=== PATIENT | female | born 1985 | race African-American/Black ===

== ENCOUNTER 2021-08-07 11:14 | Emergency (ER) | payer OTHER, MEDICAID, SELFPAY ==
[2021-08-07] VITALS (9 sets, daily range): BP systolic 121–132; BP diastolic 72–89; PULSE 87–110; RESP 18–22; TEMP 37.1; O2SAT 94–100; BMI 34.3
[2021-08-07 11:44] LABS: COVID19 -Nasal RAPID POSITIVE (Negative)
--- NOTE | 2021-08-07 12:48 | ED.URI ---
HPI - URI/Sore Throat <Cecilio Suarez PA-C - Last Filed: 08/07/21 14:02> General Chief Complaint: Upper Respiratory Symptoms Stated Complaint: Body aches/no taste/cough x1 week Time Seen by Provider: 08/07/21 12:03 Source: patient Mode of arrival: Ambulatory Limitations: no limitations History of Present Illness HPI Narrative: 36-year-old female with no significant past medical history presents to the ED with 1 week of muscle aches, cough. Patient is unvaccinated for COVID-19. Patient endorses cough, all over myalgias, loss of taste, blunted sense of smell for 1 week. Denies fever, chills, chest pain, shortness of breath, nausea, vomiting, diarrhea, dysuria, lightheadedness, dizziness, syncope. Denies leg swelling, prior PE or DVT, exogenous hormone use, hemoptysis, immobilization. Endorses smoking. Patient requesting a note today for work stating that she is COVID positive. Related Data Allergies Allergy/AdvReac Type Severity Reaction Status Date / Time No Known Drug Allergies Allergy Verified 08/07/21 11:25 Review of Systems <Cecilio Suarez PA-C - Last Filed: 08/07/21 14:02> Constitutional Constitutional: Reports body ache(s), Denies chills, Reports fatigue, Denies fever(s), Denies frequent falls, Denies lethargy and Denies weakness Eyes Eyes: Denies change in vision, Denies eye discharge, Denies irritation and Denies loss of vision ENT Ears, Nose, Mouth, and Throat: Denies change in voice, Denies dizziness, Denies neck pain, Denies sore throat and Denies throat swelling Comments: Loss of taste. Blunted sense of smell Cardiovascular Cardiovascular: Denies chest pain, Denies irregular heart rhythm, Denies lightheadedness, Denies palpitations, Denies dyspnea, Denies dyspnea on exertion and Denies orthopnea Respiratory Respiratory: Reports cough, Denies dyspnea, Denies dyspnea on exertion and Denies wheezing Gastrointestinal Gastrointestinal: Denies abdominal pain, Denies change in bowel habits, Denies diarrhea, Denies nausea and Denies vomiting Musculoskeletal Musculoskeletal: Denies neck pain and Denies numbness Integumentary/Breasts Skin/Breast: Denies pruritus, Denies erythema, Denies rash and Denies wounds Neurologic Neurologic: Denies behavioral changes, Denies confusion, Denies dizziness, Denies frequent falls, Denies loss of vision, Denies numbness and Denies weakness Psychiatric Psychiatric: Denies anxiety, Denies behavioral changes, Denies confusion, Denies depression, Denies homicidal ideation and Denies suicidal ideation Endocrine Endocrine: Reports fatigue, Denies flushing and Denies palpitations Hematologic/Lymphatic Hematologic/Lymphatic: Denies easy bruising Allergic/Immunologic Allergic/Immunologic: Denies urticaria, Denies throat swelling and Denies wheezing Patient History <Cecilio Suarez PA-C - Last Filed: 08/07/21 14:02> Social History Smoking Status: Current every day smoker Smoking Status: Current every day smoker alcohol intake frequency: holidays/special occasions only Substance Use Type: does not use Exam <Cecilio Suarez PA-C - Last Filed: 08/07/21 14:02> Initial Vital Signs Initial Vital Signs: Vital Signs Temperature 98.8 F 08/07/21 11:20 Pulse Rate 101 H 08/07/21 11:20 Respiratory Rate 22 08/07/21 11:20 Blood Pressure 132/72 08/07/21 11:20 Pulse Oximetry 94 08/07/21 11:20 Const General: cooperative HENMT Head: normocephalic and atraumatic Ears: external ears normal and TM's normal bilaterally Nose: external nose normal and No nasal discharge Face and sinus: sinuses nontender, face symmetric, no sinus tenderness and No dry mucous membranes Mouth: oral mucosae normal and moist mucous membranes Teeth and gingiva: dentition normal Throat: tonsils normal and uvula midline Eyes General: appearance normal, both eyes and all related structures Eyelids: eyelids normal Conjunctivae: conjunctivae normal Sclera: sclerae normal Pupils: PERRL EOM: EOM intact bilaterally Neck Neck: normal visual inspection, trachea midline, No lymphadenopathy, No midline deformity and No JVD Lymphatic: No lymphedema Chest Chest: normal inspection of the chest Resp Effort & Inspection: normal respiratory effort, able to speak in complete sentences, no respiratory distress and no use of accessory muscles Auscultation: clear to auscultation bilaterally, no rales, no rhonchi and no wheezes Cardio Rate: tachycardic Rhythm: regular rhythm Heart Sounds: no click, no gallops, no murmurs and no rubs Pulses: normal peripheral pulses Other: Tachy between 90 to low 100s. GI Inspection: non-distended Palpation: soft, no hepatosplenomegaly, No guarding, No pulsatile mass and No tender Auscultation: normal bowel sounds Back/Spine/Pelvis Back: No CVA tenderness Cervical Spine: cervical ROM normal and No pain with cervical ROM Thoracic/Lumbar Spine: thoracic and lumbar spine normal to inspection Skin General: no rashes or lesions noted, No jaundice and No petechiae Neuro General: patient alert, patient oriented x3, gait normal and no focal motor deficits Speech: speech normal Extrem General: full ROM, no clubbing, cyanosis or edema, no pedal edema and no calf tenderness Psych Appearance: well kempt Mental Status: mental status grossly normal Attitude: cooperative Thought Content: normal and suicidality Judgment: judgment good <Jeana Mendoza MD - Last Filed: 08/07/21 14:42> Initial Vital Signs Initial Vital Signs: Vital Signs Temperature 98.8 F 08/07/21 11:20 Pulse Rate 101 H 08/07/21 11:20 Respiratory Rate 22 08/07/21 11:20 Blood Pressure 132/72 08/07/21 11:20 Pulse Oximetry 94 08/07/21 11:20 Course <Cecilio Suarez PA-C - Last Filed: 08/07/21 14:02> Course Course Narrative: Patient tolerated p.o. hydration well, heart rate came down to the 80s. Patient is stable. Will discharge home with ED return precautions. Orders Ordered: ED Orders 08/07/21 11:20 COVID19 -Nasal swab/Pre-Proc Stat Vital Signs Vital signs: Vital Signs - 8 hr 08/07/21 11:20 08/07/21 11:22 08/07/21 11:30 Temperature 98.8 F Pulse Rate 110 H 108 H 97 H Respiratory Rate 22 Blood Pressure 132/72 123/72 Pulse Oximetry 96 96 97 08/07/21 12:00 08/07/21 12:30 08/07/21 12:39 Temperature 98.7 F Pulse Rate 94 H 98 H 104 H Respiratory Rate Blood Pressure 121/89 Pulse Oximetry 100 100 100 08/07/21 13:00 08/07/21 13:30 08/07/21 14:01 Temperature Pulse Rate 94 H 87 88 Respiratory Rate 18 Blood Pressure 123/89 Pulse Oximetry 100 100 100 <Jeana Mendoza MD - Last Filed: 08/07/21 14:42> Orders Ordered: ED Orders 08/07/21 11:20 COVID19 -Nasal swab/Pre-Proc Stat Vital Signs Vital signs: Vital Signs - 8 hr 08/07/21 11:20 08/07/21 11:22 08/07/21 11:30 Temperature 98.8 F Pulse Rate 110 H 108 H 97 H Respiratory Rate 22 Blood Pressure 132/72 123/72 Pulse Oximetry 96 96 97 08/07/21 12:00 08/07/21 12:30 08/07/21 12:39 Temperature 98.7 F Pulse Rate 94 H 98 H 104 H Respiratory Rate Blood Pressure 121/89 Pulse Oximetry 100 100 100 08/07/21 13:00 08/07/21 13:30 08/07/21 14:01 Temperature Pulse Rate 94 H 87 88 Respiratory Rate 18 Blood Pressure 123/89 Pulse Oximetry 100 100 100 MDM - URI/Sore Throat <Cecilio Suarez PA-C - Last Filed: 08/07/21 14:02> Medical Records Attestation: I reviewed the patient's medical records. Lab Data Attestation: I reviewed the patient's lab results. Lab results narrative: COVID-19 positive Labs: Lab Results 08/07/21 Range/Units 11:20 SARS-CoV-2 (PCR) Positive H (Negative) MDM Narrative Medical decision making narrative: 36-year-old female with no significant past medical history presents to the ED with 1 week of muscle aches, cough. Concern for COVID-19 infection versus dehydration. Patient endorses not drinking a lot of water, will offer p.o. hydration, recheck heart rate. Likely discharge home with ED return precautions. <Jeana Mendoza MD - Last Filed: 08/07/21 14:42> Lab Data Labs: Lab Results 08/07/21 Range/Units 11:20 SARS-CoV-2 (PCR) Positive H (Negative) Discharge Plan Departure Patient Disposition: Home Clinical Impression: COVID-19 Instructions: DI for COVID-19 (Suspected or Confirmed ), Coronavirus Disease 2019, Can COVID-19 be prevented? Activity Restrictions/Additional Instructions: You have been diagnosed with the COVID-19 infection today in the ED. return to the ED if you experience shortness of breath, chest pain. Stay hydrated by drinking lots of water. Continue masking, handwashing, isolating for 7-10 days. You can call the the vaccinations center to see when you are eligible for the COVID-19 vaccine. <Jeana Mendoza MD - Last Filed: 08/07/21 14:42> Cosign ED Attending Cosignature Attestation: I was immediately available in the department for consultation throughout this patient's visit. I agree with documentation as above. Jeana Mendoza MD
== END 2021-08-07 14:01 | disposition home or self-care (01) ==
PROVIDERS: Emergency Medicine; Emergency Provider Student in an Organized Health Care Education/Training Program
DX: U07.1 COVID-19 (principal)
CPT/HCPCS: 87635; 99281; 99282; C9803

== ENCOUNTER 2021-11-30 01:25 | Emergency (ER) | payer OTHER, MEDICAID, SELFPAY ==
[2021-11-30 01:30] VITALS: BP 137/95; PULSE 110; RESP 20; TEMP 36.6; O2SAT 98; BMI 40.3
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
[2021-11-30] MEDS: AMOXICILLIN/CLAV 875/125 MG 1 TAB PO (01:56)
[2021-11-30] MEDS: TET,DIPH,PERTUSS(ACELL),VAC/PF 0.5 ML SYRINGE IM (01:56)
[2021-11-30] MEDS: BUPIVACAINE 0.25% (PF) VIAL 5 ML SUBCUT (03:28)
[2021-11-30 03:39] VITALS: BP 140/92; PULSE 102; RESP 18; O2SAT 98
[2021-11-30] MEDS: HYDROCODONE/ACET 5/325 PREPACK 1 BOTTLE MISC (05:04)
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
== END 2021-11-30 05:20 | disposition home or self-care (01) ==
PROVIDERS: Emergency Provider Emergency Medicine
DX: M26.34 Vertical displacement of fully erupted tooth or teeth (principal); Y04.2XXA Assault by strike against or bumped into by another person, initial encounter; Z23 Encounter for immunization
CPT/HCPCS: 64450; 70486; 90471; 99284; 90715

== ENCOUNTER 2024-12-05 00:48 | Emergency (ER) | payer OTHER, SELFPAY ==
[2024-12-05 00:56] VITALS: BP 163/92; PULSE 92; RESP 16; TEMP 36.5; O2SAT 100; BMI 36.3
[2024-12-05 01:37] LABS: Urine Volume 10mL (spun)
[2024-12-05 01:38] LABS: RBC Urine 5-10/HPF (0-5/HPF); WBC Urine 30-100/HPF (0-5/HPF)
[2024-12-05 01:39] LABS: Bacteria Urine Moderate (10-30); Culture Indicated Urine Specimen Cultured; Mucus Urine 1+ (Negative); Squamous Epithelial Cell Urine 10-30 /HPF (0-5/HPF)
[2024-12-05] MEDS: PHENAZOPYRIDINE 100 MG TABLET 200 MG PO (01:58)
[2024-12-05] MEDS: cephALEXin 250 MG CAPSULE 500 MG PO (01:58)
--- NOTE | 2024-12-05 02:26 | ED_ITS ---
HPI - Female Genitourinary General Chief complaint: Urogenital-Female Stated complaint: yeast infection Time Seen by Provider: 12/05/24 01:52 Source: patient Mode of arrival: Ambulatory History of Present Illness HPI Narrative: 39-year-old female with remote history of urinary tract infection, now with 3 days duration of dysuria and frequency of urination. No fevers or chills. No nausea or vomiting. No back pain flank area discomfort. Denies anterior abdominal discomfort. She has not recently been on any antibiotics. She denies vaginal discharge, denies history of pelvic infections. Symptoms feel similar to her previous bladder infection symptoms. She has not tried any medications for this Related Data Previous Rx's Medication Instructions Recorded hydrocodone 5 mg-acetaminophen 325 1 tab PO Q4-6H PRN pain #10 tabs 11/30/21 mg tablet cephalexin 500 mg capsule 500 mg PO QID 5 days #20 caps 12/05/24 phenazopyridine 200 mg tablet 200 mg PO TID PRN pain #10 tabs 12/05/24 (Pyridium) Allergies Allergy/AdvReac Type Severity Reaction Status Date / Time No Known Drug Allergies Allergy Verified 05/10/22 17:12 Exam Narrative Exam Narrative: GENERAL: Well-developed patient, in mild distress. HEAD: Atraumatic. Normocephalic. EYES: Pupils equal round and reactive. Extraocular motions intact. No scleral icterus. No injection or drainage. ENT: Nose without bleeding, purulent drainage. Throat without erythema, tonsillar hypertrophy or exudate. Airway patent. NECK: Trachea midline. Non tender CARDIOVASCULAR: Regular rate and rhythm without murmurs, gallops, or rubs. RESPIRATORY: Clear to auscultation. Breath sounds equal bilaterally. No wheezes, rales, or rhonchi. GASTROINTESTINAL: Abdomen soft, non-tender, nondistended. EXTREMITIES: No edema or joint tenderness. BACK: Nontender without deformity or crepitance. No flank tenderness. NEURO: AOx3. Motor functions grossly nonfocal SKIN: No rash or erythema of visible areas Initial Vital Signs Initial Vital Signs: Vital Signs Temperature 97.7 F 12/05/24 00:56 Pulse Rate 92 H 12/05/24 00:56 Respiratory Rate 16 12/05/24 00:56 Blood Pressure 163/92 H 12/05/24 00:56 Pulse Oximetry 100 12/05/24 00:56 Oxygen Delivery Method Room Air 12/05/24 00:56 Course Orders Ordered: ED Orders 12/05/24 01:28 Urine Culture Stat Urine Microscopic Stat Discontinued Medications Cephalexin HCl (Cephalexin 250 Mg Capsule) 500 mg PO NOW ONE Stop: 12/05/24 01:53 Last Admin: 12/05/24 01:58 Dose: 500 mg Documented By: LS Phenazopyridine HCl (Phenazopyridine 100 Mg Tablet) 200 mg PO NOW ONE Stop: 12/05/24 01:53 Last Admin: 12/05/24 01:58 Dose: 200 mg Documented By: LS Vital Signs Vital signs: Vital Signs - 8 hr 12/05/24 00:56 12/05/24 02:42 Temperature 97.7 F Pulse Rate 92 H 86 Respiratory Rate 16 18 Blood Pressure 163/92 H 156/88 H Pulse Oximetry 100 98 Oxygen Delivery Method Room Air Room Air MDM - Female Genitourinary Lab Data Attestation: I reviewed the patient's lab results. Lab results narrative: Urinalysis suspicious for infection with bacteriuria, urine cultured by protocol Labs: Lab Results 12/05/24 Range/Units 01:28 Urine RBC 5-10/hpf H (0-5/HPF) Urine WBC 30-100/hpf H (0-5/HPF) Ur Squamous Epith Cells 10-30 /hpf H (0-5/HPF) Urine Bacteria Moderate (10-30) H (None) Urine Mucus 1+ H (Negative) Ur Culture Indicated? Specimen cultured Vol Urine Centrifuged 10ml (spun) Urine Dip Bedside Urine Glucose Negative Bedside Urine Bilirubin - Negative Bedside Urine Ketone +/- 5 Urine Specific [place] 1.030 Bedside Urine Occult Blood + Bedside Urine pH 6.0 Bedside Urine Protein +/- 15 Bedside Urine Urobilinogen +/- 1mg Bedside Urine Nitrite - Negative Bedside Urine Leukocytes +++ 500 Esterase MDM Narrative Medical decision making narrative: 39-year-old female with cystitis symptoms, no fever, symptoms last couple of days, not currently on antibiotics. Urinalysis suspicious for urinary tract infection. No signs symptoms upper tract infection. Oral dose cephalexin given, oral Pyridium given, prescription sent for further antibiotic and analgesic treatment to her pharmacy. Encouraged to drink plenty of fluids. Encouraged to take full course of antibiotic. Return precautions discussed Discharge Plan Departure Patient Disposition: Home Clinical Impression: Urinary tract infection Activity Restrictions/Additional Instructions: Painful or frequent urination last couple of days, no fever on triage, no vomiting or nausea. Vital signs unremarkable. Urine testing suspicious for infection. Urine culture requested. First dose of antibiotic given, along with Pyridium that might help with discomfort of painful urination. Further antibiotic cephalexin prescription sent to your pharmacy. Further doses Pyridium bladder analgesia pain reliever medication also sent to your pharmacy. Drink plenty of fluids. Take full antibiotic course as directed. Return to this/nearest emergency department for any change worsening symptoms or if not improving in the next couple of days. Prescriptions: New cephalexin 500 mg capsule 500 mg PO QID 5 Days Qty: 20 0RF phenazopyridine [Pyridium] 200 mg tablet 200 mg PO TID PRN (Reason: pain) Qty: 10 0RF No Action hydrocodone-acetaminophen 5-325 mg tablet 1 tab PO Q4-6H PRN (Reason: pain) Qty: 10 0RF Referrals: Miscellaneous,Doctor, [Primary Care Provider] - Stand Alone Forms: Patient Portal/API/Survey
[2024-12-05 02:42] VITALS: BP 156/88; PULSE 86; RESP 18; O2SAT 98
== END 2024-12-05 02:44 | disposition home or self-care (01) ==
PROVIDERS: Emergency Provider Emergency Medicine
DX: N39.0 Urinary tract infection, site not specified (principal)
CPT/HCPCS: 81003; 81015; 87077; 87086; 87186; 99283